=== PATIENT | female | born 1960 | race Caucasian/White ===

== ENCOUNTER → 2020-07-30 | Outpatient (CLI) | payer BC ==
--- NOTE | 2020-07-30 17:44 | RAD ---
EXAM: Chest, 2 views. HISTORY: Decreased breath sounds. COMPARISON: None. FINDINGS: 2 views of the chest are obtained. There is no infiltrate, pleural effusion or pneumothorax . The heart is normal in size. IMPRESSION: No acute pulmonary finding. Electronically signed by: Narda Jensen MD (07/30/2020 5:41 PM) [facility]
== END ==
LOC: RAD 17:13
PROVIDERS: ATTEND Nurse Practitioner Family
DX: R06.89 Other abnormalities of breathing (principal); R05 Cough
CPT/HCPCS: 71046